=== PATIENT | male | born 1970 | race Caucasian/White ===

== ENCOUNTER 2016-07-14 07:25 | Emergency (ER) | payer BC ==
[~2016-07-14] VITALS: Ht 180.3 cm; Wt 102.9 kg
[2016-07-14 07:28] VITALS: Ht 180.3 cm; Wt 102.9 kg
[2016-07-14] MEDS ORDERED: ONDANSETRON INJ 2 MG/ML 2 ML VIAL IV STA (07:39)
[2016-07-14] MEDS ORDERED: LIDOCAINE HCL 2% VISC SOLN 20 ML UDC PO STA (07:39)
[2016-07-14] MEDS ORDERED: SODIUM CHLORIDE 0.9% 1000ML 1,000 ML IV STA (07:39)
[2016-07-14] MEDS ORDERED: MoRPHine SULFATE 10 MG/ML CARP/VIAL IV STA ×2 (07:39→08:21)
[2016-07-14] MEDS ORDERED: ALUMINUM/MAGNESIUM SUSP 30 ML UDC PO STA (07:39)
[2016-07-14 07:55] LABS: BASO % 0.1 %; BASO ABS # 0.01 K/uL (0-0.2); COMPLETE YES; EOS % 1.5 %; HEMATOCRIT 45.6 % (42-52); IG% 0.2 %; LYMPH % 24.2 %; LYMPH ABS # 1.95 K/uL (1.2-3.4); MEAN CELL VOLUME 85.9 fL (80-100); MEAN CORPUSCULAR HEMOGLOBIN 32.2 pg (25-34); MEAN CORPUSCULAR HGB CONC 37.5 g/dl (32-36); MEAN PLATELET VOLUME 9.8 fL (7.4-10.4); MONO % 6.6 %; NEUT % 67.4 %; PLATELET COUNT 246 K/uL (130-400); RED BLOOD COUNT 5.31 M/uL (4.7-6.1); WHITE BLOOD COUNT 8.05 K/uL (4.8-10.8)
--- NOTE | 2016-07-14 08:06 | DIAGNOSTIC IMAGING REPORT ---
SINGLE VIEW CHEST CLINICAL HISTORY: Epigastric abdominal pain. FINDINGS: An AP, portable, upright chest radiograph is obtained. No prior studies are available for comparison at the time of dictation. The examination is degraded by portable technique and patient rotation. The heart is top normal for projection. The mediastinal contour is within normal limits. The lungs and pleural spaces are clear. No pneumothorax is seen. The bony thorax is grossly intact. IMPRESSION: No active disease in the chest. Electronically signed by: Dave Panchal M.D. 07/14/2016 8:04 AM Dictated Date/Time: 07/14/2016 8:03 AM
[2016-07-14 08:23] LABS: BUN/CREATININE RATIO 16.6 (10-20); POTASSIUM 3.4 mmol/L (3.5-5.1)
[2016-07-14 08:39] LABS: URINE APPEARANCE TURBID (CLEAR); URINE BILIRUBIN NEG (NEG); URINE COLOR YELLOW; URINE NITRITE NEG (NEG); URINE PH 8.5 (4.5-7.5); URINE SPECIFIC GRAVITY 1.017 (1.000-1.030); UROBILINOGEN NEG (NEG)
[2016-07-14 08:45] LABS: MANUAL MICROSCOPIC REQUIRED? NO; REVIEW REQ? NO
[2016-07-14] MEDS ORDERED: PANTOprazole INJ 80 MG in DEXTROSE 5% 100ML IV SCH (08:45)
[2016-07-14 08:52] VITALS: O2SAT 98
--- NOTE | 2016-07-14 08:55 | DIAGNOSTIC IMAGING REPORT ---
ULTRASOUND RIGHT UPPER QUADRANT ABDOMEN CLINICAL HISTORY: Epigastric abdominal pain. COMPARISON STUDY: No priors. TECHNIQUE: Real-time, grayscale, and color flow sonography of the right upper quadrant of the abdomen was performed. Images are reviewed in the transverse and longitudinal planes. FINDINGS: Liver: The liver is normal in size and demonstrates heterogeneously increased echotexture suggesting hepatic steatosis. There is no intrahepatic biliary ductal dilatation. The main portal vein is patent. Gallbladder: There is a 1.0 cm calcified shadowing and nonmobile gallstone in the region of the gallbladder neck. There is no gallbladder wall thickening or pericholecystic fluid. A sonographic López's sign is reportedly present. The common bile duct measures up to 0.5 cm in diameter. Pancreas: Visualized portions of the pancreatic head and body are normal in appearance. Right kidney: Survey images of the right kidney demonstrate normal size and echotexture. There is no hydronephrosis. Ascites: None. IMPRESSION: 1. Cholelithiasis with a nonmobile gallstone in the region of the gallbladder neck. A sonographic López's sign is reportedly present. No gallbladder wall thickening or pericholecystic fluid is seen. Findings are equivocal for acute cholecystitis which is not excluded. Nuclear hepatobiliary scan could be considered for further assessment. 2. Findings suggest mild hepatic steatosis. Electronically signed by: Dave Panchal M.D. 07/14/2016 8:52 AM Dictated Date/Time: 07/14/2016 8:50 AM
[2016-07-14] MEDS ORDERED: PANTOprazole INJ 40 MG in DEXTROSE 5% 100ML IV SCH (09:00)
[2016-07-14] MEDS ORDERED: OMEP40CA41 PO (09:08)
[2016-07-14] MEDS ORDERED: ETAN25IN2 INJ (09:08)
[2016-07-14 10:02] LABS: CALCIUM 9.5 mg/dl (8.5-10.1)
[2016-07-14 10:17] VITALS: BP 155/100; PULSE 66; O2SAT 98
--- NOTE | 2016-07-14 16:10 | EMERGENCY ROOM VISIT NOTE ---
ED Visit Note First contact with patient: 07:31 Chief Complaint: Abdominal pain. History of Present Illness: Mr. Ford is a 46 year-old white male who ambulates into the ED complaining of epigastric abdominal pain. Historical records from [facility] show ventricular tachycardia with a follow-up echocardiogram which showed mild enlargement a left ventricle and a stress echocardiogram that showed no evidence of ischemia, cardiac catheterization and venogram shows overall preserved left ventricular systolic function with normal coronary artery anatomy, cholelithiasis. Additionally he reports approximately one month ago he was seen at [facility] for similar symptoms and was discharged home to follow-up with gastroenterology for reflux symptoms but reports he has not followed up. Patient reports a gradual onset of epigastric abdominal pain that started approximately 12 hours ago. Since that time the pain has been constant and gradually increasing in intensity. The pain is currently described as stabbing in the epigastrium. The pain is nonradiating. He rates his discomfort 9/10. He has discomfort worsens with deep inspiration. He has not identified any alleviating factors related to the discomfort. He reports using ibuprofen and this had no relief of his discomfort. Approximately one hour ago he became nauseated and reports multiple episodes of vomiting. He denies fevers, chills, sweats, skin eruptions, skin color changes, upper respiratory tract symptoms, shortness of breath, chest pain, diarrhea, constipation, rectal bleeding, black/tarry stools, urinary symptoms, hematuria, back/flank pain. Review of Systems: As noted above in history of present illness. All body systems were reviewed and found to be negative as noted above. Past Medical History: As noted above, nephrolithiasis. Current Medications: Prilosec, Enbrel. Allergies to Medications: Methotrexate. Social History: Patient is currently employed; he feels safe in his home environment; he denies tobacco and alcohol use. Physical Examination: Vital Signs: Date Time Temp Pulse Resp B/P Pulse Ox O2 Delivery O2 Flow Rate FiO2 07/14/16 10:17 66 18 155/100 98 Room Air 07/14/16 09:45 68 20 159/101 99 Nasal Cannula 2.0 07/14/16 09:15 63 07/14/16 08:52 98 Nasal Cannula 2.0 07/14/16 08:51 55 16 172/103 98 Nasal Cannula 2.0 07/14/16 07:28 90 18 155/103 99 Room Air GENERAL: 46-year-old male in moderate distress due to pain, nontoxic-appearing, afebrile and hemodynamically stable. NEUROLOGICAL: Awake, alert and oriented to person, place and time. Answering questions appropriately and following commands. Normal gait. Good hand eye coordination. SKIN: Warm, dry and pink. No soft tissue eruptions or trauma noted. HEENT: Atraumatic and normocephalic. PERRLA. Sclera white and conjunctiva pink. Pharynx is nonerythematous or edematous. Speech normal. Trachea midline. No jugular venous distention. BACK: No tenderness over the bony spine. No CVA tenderness. THORAX: Lungs sounds are clear to auscultation and equal bilaterally with symmetrical chest wall. No wheezing, rales or rhonchi. No crepitus, tenderness , subcutaneous air or deformities noted. HEART: Regular rate and rhythm. No gallops, rubs or murmurs are appreciated. ABDOMEN: Flat and soft with mild tenderness in the epigastrium. Positive bowel sounds in all quadrants. No guarding, rigidity or organomegaly. EXTREMITIES: Moves all extremities well on command and with purpose. All distal neurovascular statuses are intact and equal bilaterally. ED Course: Patient is assessed as noted above. Laboratory Testing: Test 07/14/16 07:40 07/14/16 07:48 07/14/16 08:10 Range/Units White Blood Count 8.05 4.8-10.8 K/uL Red Blood Count 5.31 4.7-6.1 M/uL Hemoglobin 17.1 14.0-18.0 g/dL Hematocrit 45.6 42-52 % Mean Corpuscular Volume 85.9 80-100 fL Mean Corpuscular Hemoglobin 32.2 25-34 pg Mean Corpuscular Hemoglobin Concent 37.5 32-36 g/dl Platelet Count 246 130-400 K/uL Mean Platelet Volume 9.8 7.4-10.4 fL Neutrophils (%) (Auto) 67.4 % Lymphocytes (%) (Auto) 24.2 % Monocytes (%) (Auto) 6.6 % Eosinophils (%) (Auto) 1.5 % Basophils (%) (Auto) 0.1 % Neutrophils # (Auto) 5.42 1.4-6.5 K/uL Lymphocytes # (Auto) 1.95 1.2-3.4 K/uL Monocytes # (Auto) 0.53 0.11-0.59 K/uL Eosinophils # (Auto) 0.12 0-0.5 K/uL Basophils # (Auto) 0.01 0-0.2 K/uL RDW Standard Deviation 40.3 36.4-46.3 fL RDW Coefficient of Variation 12.7 11.5-14.5 % Immature Granulocyte % (Auto) 0.2 % Immature Granulocyte # (Auto) 0.02 0.00-0.02 K/uL Sodium Level 143 136-145 mmol/L Potassium Level 3.4 3.5-5.1 mmol/L Chloride Level 107 98-107 mmol/L Carbon Dioxide Level 25 21-32 mmol/L Anion Gap 11.0 3-11 mmol/L Blood Urea Nitrogen 17 7-18 mg/dl Creatinine 1.00 0.60-1.40 mg/dl Est Creatinine Clear Calc Drug Dose 113.9 ml/min Estimated GFR () 104.9 Estimated GFR (Non- 90.5 BUN/Creatinine Ratio 16.6 10-20 Random Glucose 142 70-99 mg/dl Calcium Level 9.5 8.5-10.1 mg/dl Total Bilirubin 1.2 0.2-1 mg/dl Direct Bilirubin 0.2 0-0.2 mg/dl Aspartate Amino Transf (AST/SGOT) 32 15-37 U/L Alanine Aminotransferase (ALT/SGPT) 45 12-78 U/L Alkaline Phosphatase 94 45-117 U/L Total Protein 7.4 6.4-8.2 gm/dl Albumin 4.6 3.4-5.0 gm/dl Lipase 169 73-393 U/L Bedside Troponin I 0.000 0-0.045 ng/ml Urine Color YELLOW Urine Appearance TURBID CLEAR Urine pH 8.5 4.5-7.5 Urine Specific [place] 1.017 1.000-1.030 Urine Protein NEG NEG Urine Glucose (UA) NEG NEG Urine Ketones 1+ NEG Urine Occult Blood NEG NEG Urine Nitrite NEG NEG Urine Bilirubin NEG NEG Urine Urobilinogen NEG NEG Urine Leukocyte Esterase NEG NEG Urine WBC (Auto) 1-5 0-5 /hpf Urine RBC (Auto) 0-4 0-4 /hpf Urine Hyaline Casts (Auto) 1-5 0-5 /lpf Urine Epithelial Cells (Auto) 10-20 0-5 /lpf Urine Bacteria (Auto) NEG NEG Chest X-Ray: Was reviewed by myself and read by the radiologist showing a poor study with no acute infiltrates, effusions or pneumothorax. Heart silhouette was of the upper limits of normal. No free air was noted under the diaphragm. Right Upper Quadrant Ultrasound: Was reviewed by myself and read by the radiologist showing a single nonmobile gallstone. No gallbladder wall thickening, pericholecystic inflammatory changes or gallbladder duct thickening. It was noted he had a positive López sign on examination and ERCP was recommended for follow-up. EKG: Was read by myself and reviewed with Dr. Rodriguez; shows normal sinus rhythm with a ventricular rate of 65 bpm. Minimal voltage criteria for left ventricular hypertrophy was noted. No acute ST changes indicating ischemia, injury or infarction. Patient was hydrated with normal saline and he was given a total of 12 mg of morphine IV for pain, 4 mg of Zofran IV for nausea, given GI cocktail by mouth and was given a Protonix bolus and started on a Protonix drip. Patient was reassessed multiple times during his stay in the emergency department. Patient's case was reviewed with Dr. Rodriguez; we agreed on diagnostic approach, treatment, disposition and plan per Patient was educated about tonight's findings and instructed on history and the plan; he verbalizes understanding and agreement with this plan. Clinical Impression: Acute epigastric abdominal pain. Decision-Making: Initially my differential diagnosis I considered gastritis, reflux, esophageal rupture, acute coronary syndrome, arrhythmia, active peptic ulcer disease and other causes. Disposition: Patient discharged home in stable condition; prior to departure he was reassessed and subjectively reported he was feeling much better and he was pain and symptom-free. Plan: Patient was encouraged use 650 mg of acetaminophen every 6 hours as needed for pain. Patient was encouraged to use his Prilosec. Patient was encouraged use a bland diet for 48 hours and avoid stomach irritants until followed up. Patient was encouraged to stay while Dayan with increase clear fluid. Patient was encouraged to follow-up with gastroenterology for possible EGD and general surgery for cholelithiasis. Patient was encouraged return to the ED for worsening/uncontrolled pain, uncontrolled vomiting, fevers or any new/concerning symptoms.
== END 2016-07-14 10:31 | disposition home or self-care (01) ==
LOC: C.EDB 07:27
DX: R10.13 Epigastric pain (principal); Z87.442 Personal history of urinary calculi; Z79.899 Other long term (current) drug therapy